=== PATIENT | male | born 1970 | race Asian ===

== ENCOUNTER 2017-07-09 15:04 | Emergency (ER) | payer OTHER ==
[~2017-07-09] VITALS: Ht 177.8 cm; Wt 79.4 kg
--- NOTE | 2017-07-09 16:00 | NUR ---
knockdown worker at bedside talking with pt.
--- NOTE | 2017-07-09 16:33 | NUR ---
Patient discharged to home in stable conditon. Written and verbal after care instructions given to patient after our social security specialist evaluated the patient. Patient verbalizes understanding of instructions. Patient ambulated with brisk steady gait.
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
== END 2017-07-09 16:36 | disposition home or self-care (01) ==
LOC: ER 15:05
DX: S00.83XA Contusion of other part of head, initial encounter (principal); X58.XXXA Exposure to other specified factors, initial encounter; Y93.89 Activity, other specified; Y92.89 Other specified places as the place of occurrence of the external cause; Y99.8 Other external cause status
CPT/HCPCS: 70486; 73140; A4663